=== PATIENT | female | born 1965 | race Two or more races ===

== ENCOUNTER 2016-08-07 10:31 | Day surgery (SDC) | payer OTHER ==
[~2016-08-07] VITALS: Ht 152.4 cm; Wt 76.4 kg
[2016-08-07] VITALS (13 sets, daily range): BP systolic 142–161; BP diastolic 65–89; PULSE 74–86; RESP 16–20; BMI 28.1
[~2016-08-07 10:31] MED LIST: CEFAZOLIN 2 GM/50 ML (PMX) 50 ML IVPB ONE; ROCURONIUM 50 MG INJ ONE
[2016-08-07] MEDS ORDERED: SOD CHLORIDE 0.9% 1,000 ML IV SCH (11:00)
[2016-08-07] MEDS ORDERED: BUPIVACAINE 0.25% (MPF) 30 ML INJ ONE (12:12)
[2016-08-07] MEDS ORDERED: LIDOCAINE 2% (SDV) 5 ML INJ ONE (14:11)
[2016-08-07] MEDS ORDERED: FENTAnyl 50 MCG/ML VIAL ONE ×2 (14:11→14:51)
[2016-08-07] MEDS ORDERED: PROPOFOL 60 ML ONE (14:11)
[2016-08-07] MEDS ORDERED: DEXAMETHASONE 4 MG/ML 1 ML INJ ONE (14:39)
[2016-08-07] MEDS ORDERED: ONDANSETRON 4 MG INJ ONE (14:39)
[2016-08-07] MEDS ORDERED: METOCLOPRAMIDE 10 MG INJ IV PRN (15:00)
[2016-08-07] MEDS ORDERED: MEPERIDINE 25 MG INJ IV PRN (15:00)
[2016-08-07] MEDS ORDERED: HYDROmorphONE (0.2 MG/ML) 10ML SYG IV PRN ×3 (15:00)
[2016-08-07] MEDS ORDERED: OXYCODONE/ACETAMINOPHEN (5/325) TAB PO PRN (15:00)
[2016-08-07] MEDS ORDERED: LABETALOL HCL 20MG INJ IV PRN (15:00)
[2016-08-07] MEDS ORDERED: FENTAnyl 50 MCG/ML VIAL IV PRN ×3 (15:00)
[2016-08-07] MEDS ORDERED: hydrALAzine 20 MG INJ IV PRN (15:00)
[2016-08-07] MEDS ORDERED: DIPHENHYDRAMINE 50 MG INJ IV PRN (15:00)
[2016-08-07] MEDS ORDERED: ONDANSETRON 4 MG INJ IV PRN (15:00)
[2016-08-07] MEDS ORDERED: EPHEDrine SULFATE 50 MG/5 ML SYG IV PRN (15:00)
[2016-08-07] MEDS ORDERED: CEFAZOLIN 1 GM INJ ONE (15:02)
[2016-08-07] MEDS ORDERED: NEOSTIGMINE 3 MG/3 ML SYRINGE ONE (15:02)
[2016-08-07] MEDS ORDERED: GLYCOPYRROLATE 0.4 MG INJ ONE (15:02)
[2016-08-07] MEDS ORDERED: LABETALOL HCL 20MG INJ ONE (15:11)
--- NOTE | 2016-08-07 15:11 | OPR ---
Date/Time of Note Date/Time of Note DATE: 08/07/16 TIME: 15:10 Operative Report Procedure Date: August 07, 2016 Preoperative Diagnosis symptomatic gallstones and fatty liver Postoperative Diagnosis same Operation Performed lap anca wedge liver biopsy Surgeon: Emily SUMMERS Specimens gallbladder and wedge liver biopsy Emily SUMMERS August 07, 2016 15:11
[2016-08-07] MEDS ORDERED: HYDROCODONE/APAP (5/325) TAB PO ONE (15:30)
--- NOTE | 2016-08-07 16:03 | OPR ---
DATE OF OPERATION: 08/07/2016 INDICATION: This is a 51-year-old female with symptomatic gallstones and radiographic imaging showi ng fatty liver. She requests surgical excision of her gallbladder and a liver biopsy. Risks, alter natives, benefits, and personnel were discussed with the patient. The patient expressed understandi ng and consents to the operation. PREOPERATIVE DIAGNOSIS: Symptomatic gallstones and fatty liver. POSTOPERATIVE DIAGNOSIS: Symptomatic gallstones and fatty liver. OPERATION PERFORMED: 1. Laparoscopic cholecystectomy. CPT code 08601. 2. Biopsy of liver, wedge. CPT code 53915. SURGEON: Elena Storm MD SPECIMENS: Gallbladder and liver wedge biopsy. COMPLICATIONS: None. ANESTHESIA: General. PROCEDURE: The patient was taken to the OR and prepped and draped in the usual sterile fashion. High rgical timeout was performed. IV antibiotics were given. Infraumbilical incision was made with a 1 5 blade. Dissection cautery was carried down to the fascia, which was divided with curved Coates scis sors. An 0 Vicryl U-stitch was placed in the fascia. Balloon May trocar is introduced. Pneumop eritoneum established. Midepigastric 12 mm optical trocar and right upper quadrant and right upper flank 5 mm optical trocars were placed under direct visualization. Upon initial inspection, there w ere some adhesions to the gallbladder, which were taken down bluntly. The cystic duct was identifie d. The critical view was established. The cystic duct was divided using a 35 mm Arma vascular s tapler. The cystic artery was divided using a 35 mm Arma vascular stapler. Staple line was rein forced with clips. Gallbladder was taken off the gallbladder bed. There was good hemostasis. Gall bladder was retrieved using EndoCatch bag. Due to the fatty liver, a wedge liver biopsy was perform ed by cauterizing with scissors in segment 5. There was good hemostasis. This was retrieved throug h the midepigastric port. Ports were removed under direct visualization. The 0 Vicryl U-stitch was tied down. Skin was closed using skin bre. Local anesthesia was injected. Dry dressings were applied. Dictated By: ELENA STORM MD SB/LINDA Conf#: [id number] DID#: [id number]
--- NOTE | 2016-08-07 16:39 | OPPN ---
Date/Time of Note Date/Time of Note DATE: 08/07/16 TIME: 16:39 Post-Anesthesia Notes Post-Anesthesia Note Last documented vital signs Vital Signs Date Time Temp Pulse Resp B/P Pulse Ox O2 Delivery O2 Flow Rate FiO2 08/07/16 16:01 76 155/65 92 08/07/16 15:56 18 Room Air 08/07/16 15:31 3.0 08/07/16 15:18 98.3 Activity: WNL Respiratory function: WNL Cardiovascular function: WNL Mental status: Baseline Pain reasonably controlled: Yes Hydration appropriate: Yes Nausea/Vomiting absent: Yes RONEN JESUS August 07, 2016 16:39
== END 2016-08-07 17:15 | disposition home or self-care (01) ==
LOC: SDS 10:31
PROVIDERS: ATTEND Surgery
DX: K80.10 Calculus of gallbladder with chronic cholecystitis without obstruction (principal); K76.0 Fatty (change of) liver, not elsewhere classified; I10 Essential (primary) hypertension; E66.01 Morbid (severe) obesity due to excess calories; Z68.32 Body mass index [BMI] 32.0-32.9, adult
CPT/HCPCS: 47100; 47562; 84703; 88304; 88307; J0690; J1100; J2405; J2710; J3010; Z7512; Z7610

== ENCOUNTER 2018-09-23 07:15 | Day surgery (SDC) | payer OTHER ==
[~2018-09-23] VITALS: Ht 167.6 cm; Wt 77.4 kg
[2018-09-23 08:11] VITALS: Ht 167.6 cm; Wt 77.4 kg
[2018-09-23] MEDS ORDERED: METOPROLOL (08:16)
[2018-09-23] MEDS ORDERED: INHALER (08:16)
[2018-09-23] MEDS ORDERED: NAPROXEN (08:16)
[2018-09-23] MEDS ORDERED: VIT D3 (08:16)
[2018-09-23 09:15] VITALS: BP 138/63; PULSE 90; RESP 20
[2018-09-23] MEDS ORDERED: LIDOCAINE 4% SOLUTION 50 ML BTL ONE (09:15)
[2018-09-23] MEDS ORDERED: FENTAnyl 50 MCG/ML VIAL ONE (10:04)
[2018-09-23] MEDS ORDERED: MIDAZOLAM 1 MG/ML 2 ML INJ ONE ×2 (10:04)
[2018-09-23 10:17] VITALS: BP 135/58; PULSE 72; RESP 16
== END 2018-09-23 12:02 | disposition home or self-care (01) ==
LOC: GIL 07:15
PROVIDERS: ATTEND Internal Medicine Gastroenterology
DX: R19.5 Other fecal abnormalities (principal); K29.50 Unspecified chronic gastritis without bleeding; K64.9 Unspecified hemorrhoids; K57.30 Diverticulosis of large intestine without perforation or abscess without bleeding
CPT/HCPCS: 43239; 45378; 88305; 88312; J2250; J3010